=== PATIENT | female | born 1975 | race Two or more races ===

== ENCOUNTER 2018-04-11 22:44 | Emergency (ER) | payer OTHER ==
[~2018-04-11] VITALS: Ht 154.9 cm; Wt 63.0 kg
[2018-04-11] MEDS ORDERED: NEURONTIN300 MG (22:59)
[2018-04-11] MEDS ORDERED: PANADOL EXTRA500 MG (22:59)
[2018-04-12] MEDS ORDERED: KETO10TA2 PO (01:45)
[2018-04-12] MEDS ORDERED: NORFLEX100MG PO (01:45)
== END 2018-04-12 02:40 | disposition home or self-care (01) ==
LOC: ER 22:44
DX: M54.5 Low back pain (principal)

== ENCOUNTER 2021-06-17 11:00 | Emergency (ER) | payer OTHER ==
[~2021-06-17] VITALS: Ht 154.9 cm; Wt 59.0 kg
[~2021-06-17 11:00] MED LIST: KETO10TA2 PO; NEURONTIN300 MG; NORFLEX100MG PO; PANADOL EXTRA500 MG
[2021-06-17] MEDS ORDERED: KETO10TA2 PO (13:56)
[2021-06-17] MEDS ORDERED: NORFLEX100MG PO (13:56)
== END 2021-06-17 13:57 | disposition home or self-care (01) ==
LOC: ER 11:00
DX: M54.5 Low back pain (principal)